=== PATIENT | male | born 1975 | race Caucasian/White ===

== ENCOUNTER 2024-11-14 22:30 | Emergency (ER) | payer BC ==
[~2024-11-14 22:30] MED LIST: Iopamidol 370 76% 100 ML VIAL ONE
[2024-11-14] MEDS ORDERED: Sodium Chloride 0.9% 1,000 ML ONE (23:02)
[2024-11-14 23:16] LABS: #Basophils 0.1 thou/uL (0.0-0.2); #Lymphocytes 2.7 thou/uL (1.20-3.40); #Neutrophils 11.8 thou/uL (1.40-6.50); %Basophils 0.5 % (0.0-1.0); %Lymphocytes 17.3 % (21.0-51.0); %Monocytes 6.5 % (0.0-10.0); %Neutrophils 75.8 % (42.0-75.0); Hemoglobin 16.3 g/dL (14.0-18.0); Mean Corpuscular Hemoglobin 29.5 pg (27.0-31.0); Mean Corpuscular Volume 92.1 fl (78.0-98.0); Mean Platelet Volume 8.8 fL (7.4-10.4); Platelet Count 205 10x3/uL (130-400); RBC Distribution Width 12.1 % (11.5-14.5); Red Blood Cell (RBC) Count 5.53 mill/uL (4.70-6.10); White Blood Cell (WBC) Count 15.6 10x3/uL (4.8-10.8)
[2024-11-14 23:34] LABS: AST (SGOT) 1346 U/L (11-34); Albumin 3.7 g/dL (3.1-4.5); Alkaline Phosphatase 78 U/L (40-110); Anion Gap 20 mmol/L (10-20); BUN (Urea Nitrogen) 35 mg/dL (8.9-20.6); Bilirubin, Total 3.5 mg/dL (0.3-1.2); Calc. Creatinine Clearance 0 mL/min (70-130); Calcium 9.5 mg/dL (7.8-10.44); Carbon Dioxide 20 mmol/L (22-29); Chloride 96 mmol/L (98-107); Estimated GFR 46; Globulin 3.2 g/dL (2.4-3.5); Glucose 105 mg/dL (70-105); Potassium 5.2 mmol/L (3.5-5.1); Protein, Total 6.9 g/dL (6.0-8.3); Sodium 131 mmol/L (136-145); Troponin I 0.093 ng/mL (< 0.028)
[2024-11-14 23:36] LABS: Critical Call Chem-Lactate NUR.SB13@2338
[2024-11-14 23:46] LABS: ALT (SGPT) 1298 U/L (Less than 45)
[2024-11-14] MEDS ORDERED: LevoFLOXacin 750 mg/D5W 150 ml Premix Bag ONE (23:53)
[2024-11-15] MEDS ORDERED: Promethazine HCl 25 MG/ML VIAL ONE (00:28)
[2024-11-15] MEDS ORDERED: Vancomycin 1 GM VIAL ONE (00:51)
[2024-11-15] MEDS ORDERED: Sodium Chloride 0.9% 1,000 ML ONE (00:52)
[2024-11-15] MEDS ORDERED: Sodium Chloride 0.9% 500 ML ONE (00:52)
[2024-11-15] MEDS ORDERED: Sodium Chloride 0.9% 100 ML ONE (01:36)
[2024-11-15 02:28] LABS: Bilirubin Small (Negative); Blood, Urine Negative (Negative); Clarity Clear (Clear); Glucose, Urine (Dipstick) Negative (Negative); Ketone, Urine Trace mg/dL (Negative); Leukocyte Negative (Negative); Nitrite Negative (Negative); Protein, Urine (Dipstick) 100 mg/dL (Neg-Trace); pH, Urine 5.5 (5.0-9.0)
[2024-11-15 02:30] LABS: Bacteria/HPF None Seen HPF (None Seen); CAUTI Indications for Culture Dysuria,urgency,freq; RBC/HPF None Seen HPF (0-3); Squamous Epithelial None Seen HPF (0-3); WBC/HPF 0-3 HPF (0-3)
[2024-11-15 02:31] LABS: Urine Culture Reflex No No
[2024-11-15 02:37] LABS: Amphetamine Detected (NotDetected); Barbiturates Screen Not Detected (NotDetected); Benzodiazepine Screen Not Detected (NotDetected); Cocaine Metabolite Screen Not Detected (NotDetected); Methadone Not Detected (NotDetected); Methamphetamine Detected (NotDetected); Opiate Screen Not Detected (NotDetected); Oxycodone Screen Not Detected (NotDetected); Phencyclidine (PCP) Not Detected (NotDetected); THC/Cannabinoid Screen Detected (NotDetected); Tricyclic Screen Not Detected (NotDetected)
[2024-11-15] MEDS ORDERED: HYDROcodone/Acetaminophen 5/325 mg Tablet ONE (03:48)
[2024-11-15] MEDS ORDERED: Doxycycline 100 MG CAP ONE (04:32)
[2024-11-15 04:52] LABS: Troponin I 0.099 ng/mL (< 0.028)
== END 2024-11-15 05:46 | disposition short-term general hospital (02) ==
LOC: NAV ERS 22:30
DX: A41.9 Sepsis, unspecified organism (principal); A70 Chlamydia psittaci infections; R79.89 Other specified abnormal findings of blood chemistry; E87.1 Hypo-osmolality and hyponatremia
CPT/HCPCS: 36415; 71046; 71275; 80053; 80306; 81001; 83605; 83880; 84484; 85025; 85379; 87040; 87428; 93005; 94760; 96365; 96366; 96367; 96374; 96375; J0457; J1956; J2550; J3370; J7030; Q9967